=== PATIENT | male | born 1945 | race Caucasian/White ===

== ENCOUNTER 2016-09-01 11:10 | Day surgery (SDC) | payer MEDICARE, OTHER ==
--- NOTE | ~2016-09-01 | EGD ---
EGD REPORT [facility] [address] [address] NAME: EVER BUSTILLO JR : [birth year] STATUS : REG [facility] [place] PAT#: [id number] AGE: 71 ADM/REG DATE : 09/01/16 MR#: [id number] REPORT SERV DATE: 09/01/16 DICTATED BY: CLARENCE STUART DATE: 09/01/16 REPORT STATUS : Draft TRANSCRIBED BY: [facility] DATE: 09/01/16 Endoscopy Center Patient Name: Ever Bustillo Date of : 1945 Attending MD: EUGENIA STUART MD Procedure Date No Time: 09/01/2016 Procedure: Colonoscopy Indications: High risk colon cancer surveillance: Personal history of colonic polyps, Last colonoscopy: May 2013 Referring MD: Sara HOPPER MD Medicines: See the Anesthesia note for documentation of the administered medications Complications: Vasovagal reaction Procedure: Pre-Anesthesia Assessment: - ASA Grade Assessment: III - A patient with severe systemic disease. - Prior to the procedure, a History and Physical was performed, and patient medications and allergies were reviewed. The patient's tolerance of previous anesthesia was also reviewed. The risks and benefits of the procedure and the sedation options and risks were discussed with the patient. All questions were answered, and informed consent was obtained. Prior Anticoagulants: The patient has taken no previous anticoagulant or antiplatelet agents. After reviewing the risks and benefits, the patient was deemed in satisfactory condition to undergo the procedure. After I obtained informed consent, the scope was passed under direct vision. Throughout the procedure, the patient's blood pressure, pulse, and oxygen saturations were monitored continuously. The PCF [id number] was introduced through the anus and advanced to the terminal ileum. The ileocecal valve, appendiceal orifice, terminal ileum and rectum were photographed. The entire colon was examined. The colonoscopy was performed with moderate difficulty due to vagal response. Successful completion of the procedure was aided by IV fluids and temporarily interruuting the procedure. The patient tolerated the procedure well. The quality of the bowel preparation was adequate. Findings: The terminal ileum appeared normal. A sessile polyp was found in the cecum. The polyp was 3 mm in size. The polyp was removed with a cold biopsy forceps. Resection and retrieval EGD REPORT [address] [address] NAME: EVER BUSTILLO JR : [birth year] STATUS : REG [facility]#: [id number] AGE: 71 ADM/REG DATE : 09/01/16 MR#: [id number] REPORT SERV DATE: 09/01/16 DICTATED BY: CLARENCE STUART DATE: 09/01/16 REPORT STATUS : Draft TRANSCRIBED BY: [employer] DATE: 09/01/16 were complete. A sessile polyp was found in the cecum. The polyp was 5 mm in size. The polyp was removed with a cold snare. Resection and retrieval were complete. A sessile polyp was found in the proximal ascending colon. The polyp was 5 mm in size. The polyp was removed with a cold snare. Resection and retrieval were complete. Multiple medium-mouthed diverticula were found in the sigmoid colon, in the descending colon and in the transverse colon. Non-bleeding internal hemorrhoids were found during retroflexion and were Grade I (internal hemorrhoids that do not prolapse). No other significant abnormalities were identified in a careful examination of the remainder of the colon. Impression: - The examined portion of the ileum was normal. - One 3 mm polyp in the cecum. Resected and retrieved. - One 5 mm polyp in the cecum. Resected and retrieved. - One 5 mm polyp in the proximal ascending colon. Resected and retrieved. - Diverticulosis in the sigmoid colon, in the descending colon and in the transverse colon. - Non-bleeding internal hemorrhoids. Recommendation: - Patient has a contact number available for emergencies. The signs and symptoms of potential delayed complications were discussed with the patient. Return to normal activities tomorrow. Written discharge instructions were provided to the patient. - High fiber diet indefinitely. - Discharge patient to home. - Continue present medications. - Await pathology results. - Repeat colonoscopy in 5 years for surveillance. Procedure Code(s): --- Professional --- 49919, Colonoscopy, flexible, proximal to splenic flexure; with removal of tumor(s), polyp(s), or other lesion(s) by snare technique 20544, 59, Colonoscopy, flexible, proximal to splenic flexure; with biopsy, single or multiple Diagnosis Code(s): --- Professional --- K64.0, First degree hemorrhoids K57.30, Diverticulosis of large intestine without perforation or abscess without bleeding D12.2, Benign neoplasm of ascending colon D12.0, Benign neoplasm of cecum EGD REPORT [address] [address] NAME: EVER BUSTILLO JR : [birth year] STATUS : REG [facility] PAT#: [id number] AGE: 71 ADM/REG DATE : 09/01/16 MR#: [id number] REPORT SERV DATE: 09/01/16 DICTATED BY: CLARENCE STUART DATE: 09/01/16 REPORT STATUS : Draft TRANSCRIBED BY: [employer] DATE: 09/01/16 Z86.010, Personal history of colonic polyps R55, Syncope and collapse CPT copyright 2013 [employer]. All rights reserved. The codes documented in this report are preliminary and upon nuclear equipment design engineer review may be revised to meet current compliance requirements. EUGENIA STUART MD 09/01/2016 1:27 PM This report has been signed electronically. Number of Addenda: 0 Note Initiated On: 09/01/2016 12:49 PM Scope Withdrawal Time 0 hours 11 minutes 4 seconds
--- NOTE | ~2016-09-01 | EGD ---
EGD REPORT [facility] [address] [address] NAME: EVER BUSTILLO JR : [birth year] STATUS : REG [facility] PAT#: [id number] AGE: 71 ADM/REG DATE : 09/01/16 MR#: [id number] REPORT SERV DATE: 09/01/16 DICTATED BY: CLARENCE STUART DATE: 09/01/16 REPORT STATUS : Draft [facility]ANSCRIBED BY: [facility] DATE: 09/01/16 Endoscopy Center Patient Name: Ever Bustillo Date of : 1945 Attending MD: EUGENIA STUART MD Procedure Date No Time: 09/01/2016 Procedure: Upper GI endoscopy Indications: Gastro-esophageal reflux disease, H/O gastric polyps Referring MD: Sara HOPPER MD Medicines: See the Anesthesia note for documentation of the administered medications Complications: No immediate complications. Estimated blood loss: None. Procedure: Pre-Anesthesia Assessment: - ASA Grade Assessment: III - A patient with severe systemic disease. - Prior to the procedure, a History and Physical was performed, and patient medications and allergies were reviewed. The patient's tolerance of previous anesthesia was also reviewed. The risks and benefits of the procedure and the sedation options and risks were discussed with the patient. All questions were answered, and informed consent was obtained. Prior Anticoagulants: The patient has taken no previous anticoagulant or antiplatelet agents. After reviewing the risks and benefits, the patient was deemed in satisfactory condition to undergo the procedure. After obtaining informed consent, the endoscope was passed under direct vision. Throughout the procedure, the patient's blood pressure, pulse, and oxygen saturations were monitored continuously. The GIF H190 [id number] was introduced through the mouth, and advanced to the second part of duodenum. The upper GI endoscopy was accomplished without difficulty. The patient tolerated the procedure well. Findings: The examined duodenum was normal. A single medium-sized papule (nodule) with no bleeding and no stigmata of recent bleeding was found on the greater curvature of the stomach. submucosal This was biopsied with a cold forceps for histology. The cardia and gastric fundus were normal on retroflexion. The examined esophagus was normal. Impression: - Normal examined duodenum. - A single medium-sized papule (nodule) with no bleeding EGD REPORT [address] [address] NAME: EVER BUSTILLO JR : [birth year] STATUS : [facility] [place] PAT#: [id number] AGE: 71 ADM/REG DATE : 09/01/16 MR#: [id number] REPORT SERV DATE: 09/01/16 DICTATED BY: CLARENCE STUART DATE: 09/01/16 REPORT STATUS : Draft TRANSCRIBED BY: [employer] DATE: 09/01/16 and no stigmata of recent bleeding was found in the stomach. Biopsied. - Normal esophagus. Recommendation: - Patient has a contact number available for emergencies. The signs and symptoms of potential delayed complications were discussed with the patient. Return to normal activities tomorrow. Written discharge instructions were provided to the patient. - Regular diet. - Discharge patient to home. - Continue present medications. - Await pathology results. Procedure Code(s): --- Professional --- 35746, Esophagogastroduodenoscopy, flexible, transoral; with biopsy, single or multiple Diagnosis Code(s): --- Professional --- K31.9, Disease of stomach and duodenum, unspecified K21.9, Gastro-esophageal reflux disease without esophagitis CPT copyright 2013 [employer]. All rights reserved. The codes documented in this report are preliminary and upon wheel filler review may be revised to meet current compliance requirements. EUGENIA STUART MD 09/01/2016 1:05 PM This report has been signed electronically. Number of Addenda: 0 Note Initiated On: 09/01/2016 12:51 PM Scope Withdrawal Time 0 hours 0 minutes 0 seconds [address] [place] [address]
[~2016-09-01 11:10] MED LIST: CENTRUM PO; PRIN10 PO; RANITIDINE300 MG PO; ZOCOR10 PO
== END 2016-09-01 23:59 | disposition home or self-care (01) ==
LOC: DMU 11:10
PROVIDERS: Internal Medicine Gastroenterology
PROC: 0DBH8ZZ Excision of Cecum, Via Natural or Artificial Opening Endoscopic (ICD-10-PCS; principal; 2016-09-01 12:30)
PROC: 0DBN8ZZ Excision of Sigmoid Colon, Via Natural or Artificial Opening Endoscopic (ICD-10-PCS; 2016-09-01 12:30)
PROC: 0DBK8ZZ Excision of Ascending Colon, Via Natural or Artificial Opening Endoscopic (ICD-10-PCS; 2016-09-01 12:30)
DX: Z12.11 Encounter for screening for malignant neoplasm of colon (principal); D12.0 Benign neoplasm of cecum; D12.2 Benign neoplasm of ascending colon; I10 Essential (primary) hypertension; K21.9 Gastro-esophageal reflux disease without esophagitis; G47.33 Obstructive sleep apnea (adult) (pediatric); K64.0 First degree hemorrhoids; K57.30 Diverticulosis of large intestine without perforation or abscess without bleeding; R55 Syncope and collapse; Z86.010 Personal history of colon polyps; K31.9 Disease of stomach and duodenum, unspecified
CPT/HCPCS: 88305; J2370